=== PATIENT | male | born 1950 | race Caucasian/White ===

== ENCOUNTER 2021-05-30 08:16 | Emergency (ER) | payer MEDICARE ==
[~2021-05-30] VITALS: Ht 180.3 cm; Wt 111.0 kg
[2021-05-30 09:23] LABS: URINE BILIRUBIN - DIPSTICK NEGATIVE (NEGATIVE); URINE BLOOD DIPSTICK SMALL (NEGATIVE); URINE COLOR YELLOW; URINE GLUCOSE - DIPSTICK NEGATIVE (NEGATIVE); URINE KETONE NEGATIVE (NEGATIVE); URINE PROTEIN - DIPSTICK TRACE mg/dL (NEG-TRACE); URINE UROBILINOGEN - DIPSTICK 0.2 E.U./dL (0.2)
[2021-05-30 09:24] LABS: URINE LEUK ESTERASE MODERATE (NEGATIVE); URINE NITRITE - DIPSTICK POSITIVE (Negative)
[2021-05-30 09:25] LABS: URINE BACTERIA MANY hpf; URINE EPITHELIAL CELLS FEW EPI/hpf (0-FEW); URINE WBC 20-50 WBC/hpf (0-5)
[2021-05-30] MEDS ORDERED: TAMSULOSIN0.4 MG PO (09:33)
[2021-05-30] MEDS ORDERED: BACTRIM DS1 TAB PO (09:33)
[2021-05-30 09:36] VITALS: BP 166/92
== END 2021-05-30 09:40 | disposition home or self-care (01) ==
LOC: ED 08:16
PROVIDERS: Family Medicine
DX: N39.0 Urinary tract infection, site not specified (principal); N40.1 Benign prostatic hyperplasia with lower urinary tract symptoms; R39.12 Poor urinary stream; R35.1 Nocturia; I10 Essential (primary) hypertension; B96.20 Unspecified Escherichia coli [E. coli] as the cause of diseases classified elsewhere; Z87.440 Personal history of urinary (tract) infections

== ENCOUNTER 2022-05-19 13:55 | Emergency (ER) | payer MEDICARE ==
[~2022-05-19] VITALS: Ht 180.3 cm; Wt 111.0 kg
[~2022-05-19 13:55] MED LIST: BACTRIM DS1 TAB PO; TAMSULOSIN0.4 MG PO
[2022-05-19 14:06] VITALS: BP 150/91
[2022-05-19] MEDS ORDERED: TAMSULOSIN HCL0.4 MG PO (14:32)
[2022-05-19] MEDS ORDERED: MONTELUKAST SOD10 MG PO (14:33)
[2022-05-19] MEDS ORDERED: PANTOPRAZOLE SO40 M1 PO (14:33)
[2022-05-19] MEDS ORDERED: MAGNESIUM400 M1 (14:34)
[2022-05-19] MEDS ORDERED: LEVOTHYROXIN125 MCG PO (14:34)
[2022-05-19] MEDS ORDERED: ASPIRIN81 MG PO (14:35)
[2022-05-19] MEDS ORDERED: CALCIUM600 M1 PO (14:35)
[2022-05-19] MEDS ORDERED: CENTRUM SILVER1 TA2 (14:35)
[2022-05-19 15:01] VITALS: BP 140/75
[2022-05-19] MEDS ORDERED: ZPAK PO (16:04)
[2022-05-19] MEDS ORDERED: ZYRTEC10 MG PO (16:04)
[2022-05-19] MEDS ORDERED: TESSALON PERLE100 MG PO (16:04)
[2022-05-19 16:09] VITALS: BP 140/75
== END 2022-05-19 16:15 | disposition home or self-care (01) ==
LOC: ED 13:55
DX: J06.9 Acute upper respiratory infection, unspecified (principal); I10 Essential (primary) hypertension; Z98.890 Other specified postprocedural states; Z20.822 Contact with and (suspected) exposure to COVID-19